=== PATIENT | female | born 1995 | race Caucasian/White ===

== ENCOUNTER → 2020-02-19 | Day surgery (SDC) | payer BC ==
[~2020-02-19] VITALS: Ht 165.1 cm; Wt 47.6 kg
[~2020-02-19] MED LIST: HYDROCODON-ACE1 EAC4 PO; MELATONIN10 M2 PO; NIKKI 3 MG-0.01 EACH PO; OMEPRAZOLE20 MG PO; VRAYLAR1.5 MG PO; ZOLPIDEM TARTRA10 MG PO
[2020-02-19 06:45] LABS: HEMOGLOBIN 13.7 gm/dl (12.3-15.3); RED BLOOD COUNT 4.71 M/UL (4.00-5.10); WHITE BLOOD COUNT 9.5 K/UL (4.5-11.0)
[2020-02-19 07:05] LABS: BUN/CREATININE RATIO 18 (0-10)
== END | disposition home or self-care (01) ==
LOC: OR 06:15
PROVIDERS: Orthopaedic Surgery
PROC: 3E0T3GC Introduction of Other Therapeutic Substance into Peripheral Nerves and Plexi, Percutaneous Approach (ICD-10-PCS; 2020-02-19)
PROC: 0LBP0ZZ Excision of Left Lower Leg Tendon, Open Approach (ICD-10-PCS; principal; 2020-02-19 07:30)
DX: M65.862 Other synovitis and tenosynovitis, left lower leg (principal); L92.8 Other granulomatous disorders of the skin and subcutaneous tissue; G89.18 Other acute postprocedural pain; K21.9 Gastro-esophageal reflux disease without esophagitis; Z79.899 Other long term (current) drug therapy
CPT/HCPCS: 36415; 80048; 84703; 85025; 87070; 87205; J0592; J0690; J1100; J2001; J2250; J2405; J2704; J2710; J2795; J3010; J7120

== ENCOUNTER → 2020-03-18 | Outpatient (CLI) | payer OTHER | LOC: WCC 08:00 | DX: T81.31XA Disruption of external operation (surgical) wound, not elsewhere classified, initial encounter (principal); M65.879 Other synovitis and tenosynovitis, unspecified ankle and foot | CPT/HCPCS: 87070; 87205; G0463 ==

== ENCOUNTER → 2020-03-25 | Outpatient (CLI) | payer BC | LOC: WCC 11:20 | DX: T81.31XA Disruption of external operation (surgical) wound, not elsewhere classified, initial encounter (principal); M65.879 Other synovitis and tenosynovitis, unspecified ankle and foot ==

== ENCOUNTER → 2020-03-31 | Outpatient (CLI) | payer BC | LOC: WCC 08:57 | DX: T81.31XA Disruption of external operation (surgical) wound, not elsewhere classified, initial encounter (principal); M65.879 Other synovitis and tenosynovitis, unspecified ankle and foot ==

== ENCOUNTER → 2020-04-06 | Outpatient (CLI) | payer OTHER | LOC: WCC 08:00 | DX: T81.31XA Disruption of external operation (surgical) wound, not elsewhere classified, initial encounter (principal); M65.879 Other synovitis and tenosynovitis, unspecified ankle and foot ==

== ENCOUNTER → 2020-04-13 | Outpatient (CLI) | payer OTHER | LOC: WCC 08:05 | PROC: 0KBT0ZZ Excision of Left Lower Leg Muscle, Open Approach (ICD-10-PCS; principal; 2020-04-13) | DX: T81.31XA Disruption of external operation (surgical) wound, not elsewhere classified, initial encounter (principal); I96 Gangrene, not elsewhere classified; M65.879 Other synovitis and tenosynovitis, unspecified ankle and foot; Z79.891 Long term (current) use of opiate analgesic; Z79.899 Other long term (current) drug therapy; Y83.8 Other surgical procedures as the cause of abnormal reaction of the patient, or of later complication, without mention of misadventure at the time of the procedure | CPT/HCPCS: 97605 ==

== ENCOUNTER → 2020-04-20 | Outpatient (CLI) | payer BC | LOC: WCC 08:00 | PROC: 0KBT0ZZ Excision of Left Lower Leg Muscle, Open Approach (ICD-10-PCS; principal; 2020-04-20) | DX: T81.31XA Disruption of external operation (surgical) wound, not elsewhere classified, initial encounter (principal); I96 Gangrene, not elsewhere classified; M65.879 Other synovitis and tenosynovitis, unspecified ankle and foot; Z79.891 Long term (current) use of opiate analgesic; Z79.899 Other long term (current) drug therapy; Y83.8 Other surgical procedures as the cause of abnormal reaction of the patient, or of later complication, without mention of misadventure at the time of the procedure | CPT/HCPCS: 97605 ==

== ENCOUNTER → 2020-04-27 | Outpatient (CLI) | payer BC | LOC: WCC 08:06 | PROC: 0KBT0ZZ Excision of Left Lower Leg Muscle, Open Approach (ICD-10-PCS; principal; 2020-04-27) | DX: T81.31XA Disruption of external operation (surgical) wound, not elsewhere classified, initial encounter (principal); I96 Gangrene, not elsewhere classified; M65.879 Other synovitis and tenosynovitis, unspecified ankle and foot; Z79.891 Long term (current) use of opiate analgesic; Z79.899 Other long term (current) drug therapy; Y83.8 Other surgical procedures as the cause of abnormal reaction of the patient, or of later complication, without mention of misadventure at the time of the procedure | CPT/HCPCS: 97605 ==

== ENCOUNTER → 2020-05-04 | Outpatient (CLI) | payer BC | LOC: WCC 08:03 | PROC: 0KBT0ZZ Excision of Left Lower Leg Muscle, Open Approach (ICD-10-PCS; principal; 2020-05-04) | DX: T81.31XA Disruption of external operation (surgical) wound, not elsewhere classified, initial encounter (principal); M65.879 Other synovitis and tenosynovitis, unspecified ankle and foot; I96 Gangrene, not elsewhere classified; Z79.891 Long term (current) use of opiate analgesic; Z79.899 Other long term (current) drug therapy; Y83.8 Other surgical procedures as the cause of abnormal reaction of the patient, or of later complication, without mention of misadventure at the time of the procedure | CPT/HCPCS: 97605; J3590 ==

== ENCOUNTER → 2020-05-11 | Outpatient (CLI) | payer BC | LOC: WCC 07:56 | PROC: 0JDR0ZZ Extraction of Left Foot Subcutaneous Tissue and Fascia, Open Approach (ICD-10-PCS; principal; 2020-05-11) | DX: T81.31XA Disruption of external operation (surgical) wound, not elsewhere classified, initial encounter (principal); M65.872 Other synovitis and tenosynovitis, left ankle and foot; I96 Gangrene, not elsewhere classified; Z79.891 Long term (current) use of opiate analgesic; Z79.899 Other long term (current) drug therapy; Y83.8 Other surgical procedures as the cause of abnormal reaction of the patient, or of later complication, without mention of misadventure at the time of the procedure ==

== ENCOUNTER → 2020-05-18 | Outpatient (CLI) | payer OTHER | LOC: WCC 08:00 | PROC: 0KBT0ZZ Excision of Left Lower Leg Muscle, Open Approach (ICD-10-PCS; principal; 2020-05-18) | DX: T81.31XA Disruption of external operation (surgical) wound, not elsewhere classified, initial encounter (principal); I96 Gangrene, not elsewhere classified; M65.879 Other synovitis and tenosynovitis, unspecified ankle and foot; Z79.891 Long term (current) use of opiate analgesic; Z79.899 Other long term (current) drug therapy; Y83.8 Other surgical procedures as the cause of abnormal reaction of the patient, or of later complication, without mention of misadventure at the time of the procedure | CPT/HCPCS: 87070; 87205 ==

== ENCOUNTER → 2020-05-25 | Outpatient (CLI) | payer OTHER | LOC: WCC 08:00 | DX: T81.31XS Disruption of external operation (surgical) wound, not elsewhere classified, sequela (principal); M65.872 Other synovitis and tenosynovitis, left ankle and foot ==

== ENCOUNTER → 2020-05-28 | Outpatient (CLI) | payer BC | LOC: WCC 08:00 | DX: Z48.01 Encounter for change or removal of surgical wound dressing (principal) | CPT/HCPCS: G0463 ==

== ENCOUNTER → 2020-06-08 | Day surgery (SDC) | payer OTHER ==
[~2020-06-08] VITALS: Ht 162.6 cm; Wt 46.7 kg
[2020-06-08 07:59] LABS: BUN/CREATININE RATIO 14 (0-10); HEMOGLOBIN 14.4 gm/dl (12.3-15.3); RED BLOOD COUNT 4.73 M/UL (4.00-5.10); WHITE BLOOD COUNT 7.1 K/UL (4.5-11.0)
== END | disposition home or self-care (01) ==
LOC: OR 07:03 → EDSTATUS 09:00
PROVIDERS: Orthopaedic Surgery
DX: S81.802A Unspecified open wound, left lower leg, initial encounter (principal); K21.9 Gastro-esophageal reflux disease without esophagitis; F41.9 Anxiety disorder, unspecified; F32.9 Major depressive disorder, single episode, unspecified
CPT/HCPCS: 36415; 80048; 84703; 85025; 87070; J0171; J0690; J1100; J2001; J2250; J2405; J2704; J2795; J3010; J7120

== ENCOUNTER → 2020-07-08 | Day surgery (SDC) | payer OTHER ==
[~2020-07-08] VITALS: Ht 162.6 cm; Wt 45.4 kg
== END | disposition home or self-care (01) ==
LOC: OR 06:20 → EDSTATUS 07:45
DX: S91.002A Unspecified open wound, left ankle, initial encounter (principal); K21.9 Gastro-esophageal reflux disease without esophagitis; Z98.890 Other specified postprocedural states; Z79.899 Other long term (current) drug therapy; X58.XXXA Exposure to other specified factors, initial encounter
CPT/HCPCS: 84703; J0690; J1100; J2001; J2250; J2405; J2704; J3010; J7120